=== PATIENT | female | born 1990 | race Caucasian/White ===

== ENCOUNTER 2016-12-12 17:10 | Emergency (ER) | payer BC, OTHER ==
[2016-12-12] MEDS ORDERED: NS 1,000 ML IV ONE (17:18)
[2016-12-12] MEDS ORDERED: ONDANSETRON 4 MG/2 ML VIAL IVP ONE (17:18)
[2016-12-12 17:21] VITALS: TEMP 98.5; O2SAT 98
[2016-12-12 17:34] LABS: % IMMATURE GRANULYOCYTES 0.3 % (0.0-1.1); ABSOLUTE IMMATURE GRANULOCYTES 0.03 10^3/uL (0.00-0.10); ADD DIFF? NO; ADD MORPH? NO; ADD SCAN? NO; ATYPICAL LYMPHOCYTE FLAG 10 (0-99); FRAGMENT RBC FLAG 0 (0-99); HEMATOCRIT 37.6 % (38.0-47.0); HEMOGLOBIN 12.6 g/dL (12.6-16.3); LEFT SHIFT FLG 0 (0-99); LIPEMIA HEMOLYSIS FLAG 80 (0-99); MEAN CELL HEMOGLOBIN 31.7 pg (27.9-34.1); MEAN CELL HEMOGLOBIN CONCENTR. 33.5 g/dL (32.4-36.7); MEAN CELL VOLUME 94.5 fL (81.5-99.8); MEAN PLATELET VOLUME 10.1 fL (8.7-11.7); PLATELET CLUMPS FLAG 0 (0-99); PLATELET COUNT 331 10^3/uL (150-400); RED BLOOD CELL COUNT 3.98 10^6/uL (4.18-5.33); RED CELL DISTRIBUTION WIDTH 12.2 % (11.5-15.2)
[2016-12-12 17:43] LABS: ANION GAP 11 mEq/L (8-16); CALCIUM 10.1 mg/dL (8.5-10.4); CARBON DIOXIDE 27 mEq/l (22-31); CHLORIDE 101 mEq/L (97-110); CREATININE 0.6 mg/dL (0.6-1.0); GLOMERULAR FILTRATION RATE > 60; GLUCOSE 81 mg/dL (70-100); POTASSIUM 3.7 mEq/L (3.5-5.2); SODIUM 139 mEq/L (134-144)
[2016-12-12] MEDS ORDERED: KETOROLAC 30 MG/1 ML SDV IVP ONE (17:43)
[2016-12-12] MEDS ORDERED: HYDROmorphONE/DILAUDID 1 MG/ML SYR IVP ONE (17:43)
--- NOTE | 2016-12-12 17:48 | EDPHY ---
H & P Stated Complaint: back pain, blood in urine, urgent care referral Time Seen by Provider: 12/12/16 17:30 HPI/ROS: HPI: 26-year-old female presents to emergency department with chief concern hematuria, right flank pain, vomiting. Reports onset of urinary burning 3 days ago. Reports dark urine last night with 1 episode of emesis yesterday. Notice blood in her urine this morning, and developed right flank pain 5/10 that feels crampy and aching in nature late morning today while on a plane traveling from [place] to [place]. At that time developed lower abdominal discomfort that also feels crampy in nature. Denies fever, chills, myalgias, URI symptoms, shortness of breath, chest pain, diarrhea, rash. Denies personal or family history of kidney stone. Has never had a UTI. Had a recent yeast infection. Denies personal or family significant history. ROS:10 point review of systems is negative other than as stated in HPI Source: Patient Exam Limitations: No limitations - Personal History LMP (Females 10-55): 22-28 Days Ago Current Tetanus Diphtheria and Acellular Pertussis (TDAP): Yes - Medical/Surgical History Hx Asthma: No Hx Chronic Respiratory Disease: No Hx Diabetes: No Hx Cardiac Disease: No Hx Renal Disease: No Hx Cirrhosis: No Hx Alcoholism: No Hx HIV/AIDS: No Hx Splenectomy or Spleen Trauma: No Other PMH: DENIES - Family History Significant Family History: No pertinent family hx - Social History Smoking Status: Former smoker Alcohol Use: Rarely Drug Use: None Additional Social History: Lives in [place] - Physical Exam Exam: Vital signs stable General: Awake, alert, calm, cooperative. No acute distress. Head: Normalocephalic. Atraumatic. EENT: PERRLA. EOMI. No pallor or injection. Anicteric. No nystagmus. No injection. Neck: Supple, nontender. No lymphadenopathy. Full range of motion. No meningismus. Respiratory: Breathing unlabored. Breath sounds equal bilaterally and clear to auscultation. No adventitious sounds. CV: Chest nontender, atraumatic. Heart rate regular. No murmur, distal pulses 2+ bilaterally. Brisk cap refill all extremities. GI: Abdomen soft, moderate lower abdominal tenderness including McBurney's. No rebound. Negative Rovsing. Bowel sounds normoactive and positive x4 quadrants. : Positive suprapubic and right flank tenderness Neuro: Alert. Oriented x 3. Speech clear. Nonfocal cranial nerves throughout. Sensation intact all extremities. Skin: Skin warm, dry, intact. Skin turgor normal. Extremities: Full range of motion in all 4 extremities. Strength 5+ all extremities. Constitutional: Initial Vital Signs Temperature (C) 36.9 C 12/12/16 17:17 Heart Rate 90 12/12/16 17:17 Respiratory Rate 14 12/12/16 17:17 Blood Pressure 121/87 H 12/12/16 17:17 O2 Sat (%) 98 12/12/16 17:17 O2 Delivery Mode Room Air O2 (L/minute) 2 Allergies/Adverse Reactions: No Known Allergies Allergy (Unverified 12/12/16 17:17) Home Medications: Medication Instructions Recorded Cephalexin [Keflex (*)] 500 mg PO TID #29 cap 12/12/16 Hydrocodone/APAP 5/325 [Hitchcock 1 - 2 tab PO Q6H PRN #10 tab 12/12/16 5/325 (*)] Medical Decision Making - Diagnostics Imaging Results: Imaging Impressions Abdomen CT 12/12/16 18:14 Impression: 1. Moderate constipation. 2. Possible small bowel enteritis/dysmotile syndrome. 3. Collapsing 2 cm right ovarian cyst with a small amount of free fluid in the pelvic cul-de-sac. 4. Normal appearance to the appendix, which is noted to arise off the posterior portion of the cecum (which is located in the left lower pelvis). 5. There is no evidence of nephroureterolithiasis or obstructive uropathy. Findings were discussed with Danielle Bailey NP at 19:20, on 12/12/2016. Imaging: Discussed imaging studies w/ call center coordinator Radiologist ED Course/Re-evaluation: 1745: 26-year-old female presents to emergency department with hematuria, right flank pain, nausea vomiting. Has had urinary burning for 3 days. Has no personal or family history of kidney stone. Has never had a UTI. IV started. Blood drawn. Urine collected. Patient given 30 mg IV Toradol, 0.5 mg IV Dilaudid. Vitals are stable. Differential Diagnosis: Differential diagnosis includes but is not limited to pyelonephritis, kidney stone, appendicitis, ectopic , viral syndrome - Data Points Laboratory Results: Laboratory Results 12/12/16 17:24 12/12/16 17:24 12/12/16 12/12/16 12/12/16 17:45 17:24 17:24 WBC RBC Hgb Hct MCV MCH MCHC RDW Plt Count MPV Neut % (Auto) Lymph % (Auto) Nelson % (Auto) Eos % (Auto) Baso % (Auto) Nucleat RBC Rel Count Absolute Neuts (auto) Absolute Lymphs (auto) Absolute Monos (auto) Absolute Eos (auto) Absolute Basos (auto) Absolute Nucleated RBC Immature Gran % Immature Gran # Sodium 139 mEq/L mEq/L (134-144) Potassium 3.7 mEq/L mEq/L (3.5-5.2) Chloride 101 mEq/L mEq/L (97-110) Carbon Dioxide 27 mEq/l mEq/l (22-31) Anion Gap 11 mEq/L mEq/L (8-16) BUN 12 mg/dL mg/dL (7-23) Creatinine 0.6 mg/dL mg/dL (0.6-1.0) Estimated GFR > 60 Glucose 81 mg/dL mg/dL (70-100) Calcium 10.1 mg/dL mg/dL (8.5-10.4) Beta HCG, Qual NEGATIVE Urine Color YELLOW Urine Appearance HAZY Urine pH 9.0 H (5.0-7.5) Ur Specific Henning 1.010 (1.002-1.030) Urine Protein NEGATIVE (NEGATIVE) Urine Ketones TRACE H (NEGATIVE) Urine Blood 3+ H (NEGATIVE) Urine Nitrate NEGATIVE (NEGATIVE) Urine Bilirubin NEGATIVE (NEGATIVE) Urine Urobilinogen NEGATIVE EU EU (0.2-1.0) Ur Leukocyte Esterase NEGATIVE (NEGATIVE) Urine RBC 50-182 /hpf H /hpf (0-3) Urine WBC 1-3 /hpf /hpf (0-3) Ur Epithelial Cells TRACE /lpf /lpf (NONE-1+) Calcium Oxalate Crystal PRESENT /hpf /hpf (NONE-1+) Urine Bacteria TRACE /hpf H /hpf (NONE SEEN) Urine Mucus TRACE /lpf /lpf (NONE-1+) Urine Glucose NEGATIVE (NEGATIVE) 12/12/16 17:24 WBC 9.92 10^3/uL H 10^3/uL (3.80-9.50) RBC 3.98 10^6/uL L 10^6/uL (4.18-5.33) Hgb 12.6 g/dL g/dL (12.6-16.3) Hct 37.6 % L % (38.0-47.0) MCV 94.5 fL fL (81.5-99.8) MCH 31.7 pg pg (27.9-34.1) MCHC 33.5 g/dL g/dL (32.4-36.7) RDW 12.2 % % (11.5-15.2) Plt Count 331 10^3/uL 10^3/uL (150-400) MPV 10.1 fL fL (8.7-11.7) Neut % (Auto) 58.7 % % (39.3-74.2) Lymph % (Auto) 33.1 % % (15.0-45.0) Nelson % (Auto) 6.6 % % (4.5-13.0) Eos % (Auto) 0.8 % % (0.6-7.6) Baso % (Auto) 0.5 % % (0.3-1.7) Nucleat RBC Rel Count 0.0 % % (0.0-0.2) Absolute Neuts (auto) 5.83 10^3/uL 10^3/uL (1.70-6.50) Absolute Lymphs (auto) 3.28 10^3/uL H 10^3/uL (1.00-3.00) Absolute Monos (auto) 0.65 10^3/uL 10^3/uL (0.30-0.80) Absolute Eos (auto) 0.08 10^3/uL 10^3/uL (0.03-0.40) Absolute Basos (auto) 0.05 10^3/uL 10^3/uL (0.02-0.10) Absolute Nucleated RBC 0.00 10^3/uL 10^3/uL (0-0.01) Immature Gran % 0.3 % % (0.0-1.1) Immature Gran # 0.03 10^3/uL 10^3/uL (0.00-0.10) Sodium Potassium Chloride Carbon Dioxide Anion Gap BUN Creatinine Estimated GFR Glucose Calcium Beta HCG, Qual Urine Color Urine Appearance Urine pH Ur Specific Henning Urine Protein Urine Ketones Urine Blood Urine Nitrate Urine Bilirubin Urine Urobilinogen Ur Leukocyte Esterase Urine RBC Urine WBC Ur Epithelial Cells Calcium Oxalate Crystal Urine Bacteria Urine Mucus Urine Glucose Medications Given: Discontinued Medications Hydromorphone HCl (Dilaudid) 0.5 mg IVP EDNOW ONE Stop: 12/12/16 17:44 Last Admin: 12/12/16 17:55 Dose: 0.5 mg Sodium Chloride (Ns) 1,000 mls @ 0 mls/hr IV ONCE ONE PRN Reason: Wide Open Stop: 12/12/16 17:19 Last Admin: 12/12/16 17:55 Dose: 1,000 mls Ketorolac Tromethamine (Toradol) 30 mg IVP EDNOW ONE Stop: 12/12/16 17:44 Last Admin: 12/12/16 17:55 Dose: 30 mg Ondansetron HCl (Zofran) 4 mg IVP EDNOW ONE Stop: 12/12/16 17:19 Last Admin: 12/12/16 17:55 Dose: 4 mg Departure - Departure Disposition: Home, Routine, Self-Care Clinical Impression: Hematuria, Flank pain, acute, Constipation Condition: Good Instructions: Constipation (ED), Hematuria (ED), Flank Pain (ED) Additional Instructions: Plan: Take Keflex antibiotic as prescribed three times daily for 10 days, take with food Take an [id number] probiotic and/or eat yogurt while taking this antibiotic. You may use 600 mg of ibuprofen every 6 hours for fever, inflammation, or pain. Always take ibuprofen with food and stay well hydrated while taking. Do not exceed the maximum allowable dose in a 24 hour period which is 2400 mg. For more severe pain, 1-2 Hitchcock every 6 hours as needed--When you call to schedule appointment, please let the office know you are an "ER follow up" appointment" Follow up with primary care when you return to [place] as discussed, you will need to have your urine rechecked to ensure that the blood in your urine has totally resolved For worsening symptoms despite treatment plan, return promptly to emergency department for recheck CT shows you are constipated, drink plenty fluids, consider an [id number] stool softener, increase fiber Referrals: NONE *PRIMARY CARE P,. [Primary Care Provider] - As per Instructions Prescriptions: Cephalexin [Keflex (*)] 500 mg PO TID #29 cap Hydrocodone/APAP 5/325 [Hitchcock 5/325 (*)] 1 - 2 tab PO Q6H PRN #10 tab PRN Reason: severe pain
[2016-12-12 17:59] LABS: COLOR YELLOW; LEUKOCYTE ESTERASE,URINE NEGATIVE (NEGATIVE); NITRITE,URINE NEGATIVE (NEGATIVE)
[2016-12-12 18:09] LABS: BACTERIA TRACE /hpf (NONE SEEN); MUCUS TRACE /lpf (NONE-1+); RBC,URINE 50-182 /hpf (0-3)
[2016-12-12] MEDS ORDERED: IOPAMIDOL (ISOVUE-300) 100 ML BTL IV ONE (18:23)
[2016-12-12] MEDS ORDERED: CEPHALEXIN 500 MG CAP PO ONE (19:32)
[2016-12-12 19:55] VITALS: BP 123/77; PULSE 70; RESP 16
== END 2016-12-12 19:54 | disposition home or self-care (01) ==
DX: R31.9 Hematuria, unspecified (principal); K59.00 Constipation, unspecified; Z87.891 Personal history of nicotine dependence
CPT/HCPCS: 96374; J1170; J1885; J2405; Q9967